=== PATIENT | male | born 2000 | race Caucasian/White ===

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

== ENCOUNTER 2021-07-28 17:49 | Emergency (ER) | payer OTHER, SELFPAY ==
[2021-07-28 17:57] VITALS: BP 133/66; PULSE 79; RESP 20; TEMP 36.4; O2SAT 99
--- NOTE | 2021-07-28 18:02 | ED.URI ---
HPI - URI/Sore Throat General Chief Complaint: Upper Respiratory Infection Stated Complaint: SORE THROAT/SPOT ON THROAT Time Seen by Provider: 07/28/21 18:08 Source: patient and RN notes reviewed Mode of arrival: ambulatory Limitations: no limitations History of Present Illness HPI Narrative: 20-year-old male presented for complaint of sore throat and possible tonsil stone, stating he has a white spot on the back of his throat. Endorses a history of tonsil stones. He states he tried to press on it but was unable to remove the stone. Sore throat for about 3 days. Denies any associated sinus pressure congestion, ear pain, nausea, fevers or chills. Denies sick contacts. He is scheduled with his ENT in 4 days. MD elicited complaint: cough Related Data Allergies Allergy/AdvReac Type Severity Reaction Status Date / Time No Known Allergies Allergy Verified 07/28/21 17:57 Review of Systems Review of Systems: CONSTITUTIONAL: Denies malaise, chills, sweats, fever EYES: Denies visual changes, redness, or discharge ENT: Denies rhinorrhea, congestion, sinus pain CARDIOVASCULAR: Denies chest pain, palpitations, edema RESPIRATORY: Denies cough, post nasal drainage, dyspnea GASTROINTESTINAL: Denies abdominal pain, nausea, vomiting, diarrhea SKIN: Denies rash or itching PMFSH Social History Social History Smoking status: Never smoker Alcohol intake: never Substance use: never Exam Narrative: GENERAL: Well-appearing EYES: conjunctivae clear ENT: Mucous membranes moist. TM pearly gallo with dull light reflex bilaterally; no tragal tenderness. Oropharynx erythematous with right tonsillar white lesion, no exudate, no drooling, no hoarseness, no trismus, uvula midline. NECK: Supple. No lymphadenopathy CHEST: Clear to auscultation, breath sounds equal. HEART: Regular rate and rhythm. No murmur heard. SKIN: Warm, dry, no rash. Course Course Emergency Course: Patient is aware of diagnosis, understands and agrees to treatment plan. Anticipatory guidance given. Patient agrees to follow-up as directed and is aware of reasons to seek care at the emergency department. Portions of this record may have been created with voice recognition software Level of Care: Express Care Visit Vital Signs Vital signs: Vital Signs Temperature 97.5 F L 07/28/21 17:57 Pulse Rate 79 07/28/21 17:57 Respiratory Rate 20 07/28/21 17:57 Blood Pressure 133/66 07/28/21 17:57 Pulse Oximetry 99 07/28/21 17:57 Oxygen Delivery Room Air 07/28/21 17:57 Temperature 97.5 F L 07/28/21 17:57 Pulse Rate 79 07/28/21 17:57 Respiratory Rate 20 07/28/21 17:57 Blood Pressure 133/66 07/28/21 17:57 Pulse Oximetry 99 07/28/21 17:57 Oxygen Delivery Room Air 07/28/21 17:57 reviewed MDM - URI/Sore Throat MDM Narrative Medical decision making narrative: strep neg. right lesion does not appear to be a tonsillar stone. advised on supportive treatment and to follow-up with his ENT as scheduled. Differential Diagnosis Differential diagnosis: Likely upper respiratory infection, sinusitis, viral infection, pharyngitis and other (Tonsillitis, tonsillar stone) Lab Data Labs: Strep Screen Presumptive Negative *(Reference Range: Negative)* Discharge Plan Discharge Clinical Impression: Pharyngitis Qualifiers: Pharyngitis/tonsillitis etiology: unspecified etiology Qualified Code(s): J02.9 - Acute pharyngitis, unspecified Patient Disposition: Home, Self-Care Condition: Stable Instructions: Antibiotic Form, Pharyngitis (ED) Additional Instructions: Rapid strep swab was negative today You will be notified in a few days if the culture comes back positive for strep, and appropriate antibiotics will be called in at that time. if symptoms are due to a viral illness, it is not treated with antibiotics. Viral sy
== END 2021-07-28 18:30 | disposition home or self-care (01) ==
PROVIDERS: Emergency Provider Nurse Practitioner Family
DX: J02.9 Acute pharyngitis, unspecified (principal)
CPT/HCPCS: 87081; 87880; 99213; G0463

== ENCOUNTER → 2021-08-03 15:28 | Outpatient (CLI) | payer OTHER, SELFPAY ==
--- NOTE | ~2021-08-03 | MR_ITS ---
EXAMINATION: MR lumbar spine wo con DATE: 08/03/2021 16:10 INDICATION: Right-sided sciatica. Lumbar radiculopathy. TECHNIQUE: Magnetic resonance imaging (MRI) of the lumbar spine was performed without intravenous con trast. Sequences included sagittal T2-weighted FSE, sagittal T2-weighted FS FSE, sagittal T1-weighted FSE, and axial T2-weighted FSE. COMPARISON: None FINDINGS: Bone alignment is normal. There is mild chronic anterior wedging of T12 vertebral body. The re are Schmorl's nodes at multiple levels. There is mildly decreased disc height at L5-S1. The distal spinal cord signal intensity is normal. The conus medullaris is at L1. The following disc levels are specifically discussed: L1-L2: The disc does not extend beyond the endplate margin. There is mild bilateral facet joint osteo arthritis. There is no neural foraminal stenosis. There is no central canal stenosis. L2-L3: The disc does not extend beyond the endplate margin. There is moderate bilateral facet joint o steoarthritis. There is no neural foraminal stenosis. There is no central canal stenosis. L3-L4: The disc does not extend beyond the endplate margin. There is mild bilateral facet joint osteo arthritis. There is no neural foraminal stenosis. There is no central canal stenosis. L4-L5: The disc is bulging. There is mild right facet joint osteoarthritis. There is mild left neural foraminal stenosis. There is mild central canal stenosis. L5-S1: The disc is bulging with superimposed right subarticular zone extrusion with mass effect on th e right S1 nerve root. There is mild bilateral facet joint osteoarthritis. There is moderate right an d mild left neural foraminal stenosis. There is mild central canal stenosis. There is severe stenosis of right lateral recess. IMPRESSION: 1. Moderate spondylosis at L5-S1 where an extrusion exerts mass effect on the right S1 nerve root. Reviewed, dictated and finalized at location B. IMPRESSION: 1. Moderate spondylosis at L5-S1 where an extrusion exerts mass effect on the r ight S1 nerve root.
== END ==
DX: M54.11 Radiculopathy, occipito-atlanto-axial region (principal); M54.42 Lumbago with sciatica, left side; M47.896 Other spondylosis, lumbar region
CPT/HCPCS: 72148